=== PATIENT | male | born 1950 | race Caucasian/White ===

== ENCOUNTER 2018-01-05 15:27 | Emergency (ER) | payer BC ==
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
--- NOTE | 2018-01-08 09:21 | RADIOLOGY REPORT ---
EXAM: RIGHT FOOT HISTORY: RIGHT FOOT INJURY LAST NIGHT. ABSCESS. TECHNIQUE: Three views of the right foot were obtained. Comparison: 12/10/11. FINDINGS: There is soft tissue swelling and laceration along the medial aspect of the first metatarsal phalangeal joint. The underlying bones appear intact. There is no visible acute fracture or destructive process. The bones are diffusely osteopenic. There is no radiopaque foreign body. IMPRESSION: 1. LOCALIZED SOFT TISSUE SWELLING AND SKIN WOUND MEDIAL TO THE FIRST METATARSAL PHALANGEAL JOINT. THERE IS NO FOREIGN BODY. 2. NO ACUTE OSSEOUS ABNORMALITY IDENTIFIED. [facility]BER: [id number] [facility]
== END 2018-01-05 17:35 | disposition home or self-care (01) ==
LOC: ER 15:27
DX: L02.611 Cutaneous abscess of right foot (principal); Z87.891 Personal history of nicotine dependence
CPT/HCPCS: 99283

== ENCOUNTER 2018-01-16 10:05 | Emergency (ER) | payer BC ==
[2018-01-16] MEDS ORDERED: ONDANSETRON HCL IV 4 MG/2 ML VIAL IVP ONE (10:15)
[2018-01-16] MEDS ORDERED: 0.9 % SODIUM CHLORIDE 1,000 ML BAG IV ONE (10:15)
--- NOTE | 2018-01-16 10:19 | Emergency Department Record ---
History of Present Illness - General Chief Complaint: Abdominal Pain Stated Complaint: ABDOMINAL PAIN AND BLOATING Time Seen by Provider: 01/16/18 10:11 Source: Patient Mode of Arrival: Ambulatory Limitations: No limitations - History of Present Illness Initial Comments: 67 yo male presents with abdominal bloating and pain for 3 days. He denies past surgical history. No fevers. He is having dry heaves but little vomiting. He has decreased appetite and unable to eat or drink much at this point. He states his bowel movements have decreased as well. He is passing gas. No history of obstruction. He was treated with antibiotics for a foot infection currently. He was seen in the podiatry clinic. No back pain. PCP is in [place]. History of Hep CRan ARTEAGA Complaint: Abdominal pain -: Days(s) (3) Location: Diffuse Radiation: Other (diffuse) Migration to: Other (diffuse) Severity: Moderate Quality: Aching Consistency: Constant Improves With: Nothing Worsens With: Eating Context: Other Associated Symptoms: Anorexia - Related Data Home Medications Medication Instructions Recorded Confirmed Last Taken Amlodipine Besylate [Norvasc] 10 mg PO DAILY 01/16/18 01/16/18 01/16/18 Aspirin [Aspir-Low] 81 mg PO DAILY 01/16/18 01/16/18 01/16/18 Meloxicam [Mobic] 15 mg PO DAILY 01/16/18 01/16/18 01/16/18 Allergies Allergy/AdvReac Type Severity Reaction Status Date / Time sulfamethoxazole AdvReac Intermediate nausea Verified 01/16/18 10:20 [From Bactrim] trimethoprim [From Bactrim] AdvReac Intermediate nausea Verified 01/16/18 10:20 Review of Systems Constitutional: Denies: Chills, Fever, Malaise, Weakness Eyes: Denies: Eye discharge ENT: Denies: Congestion, Throat pain Respiratory: Denies: Cough Cardiovascular: Denies: Chest pain, Palpitations, Syncope Endocrine: Denies: Fatigue Gastrointestinal: Reports: As per HPI, Abdominal pain, Constipation, Nausea. Denies: Diarrhea, Hematemesis, Hematochezia, Melena, Vomiting Genitourinary: Denies: Dysuria, Frequency, Hematuria Musculoskeletal: Reports: As per HPI, Arthralgia. Denies: Back pain, Myalgia Skin: Denies: Bruising Neurological: Denies: Headache Psychiatric: Denies: Anxiety Hematological/Lymphatic: Denies: Blood Clots, Easy bleeding, Easy bruising, Swollen glands Past Medical History - SOCIAL HISTORY Smoking Status: Former smoker Drug Use: None - RESPIRATORY Hx Respiratory Disorders: Yes Hx COPD: Yes - CARDIOVASCULAR Hx Cardio Disorders: Yes Hx Hypertension: Yes - NEURO Hx Neuro Disorders: No - GI Hx GI Disorders: Yes Hx Liver Disease: Yes (Hep C) - Hx Genitourinary Disorders: No - ENDOCRINE Hx Endocrine Disorders: No - MUSCULOSKELETAL Hx Musculoskeletal Disorders: Yes Hx Arthritis: Yes (Chronic Pain) - PSYCH Hx Psych Problems: Yes Hx Anxiety: Yes Hx Depression: Yes (PTSD) - HEMATOLOGY/ONCOLOGY Hx Hematology/Oncology Disorders: No Family Medical History Hx HTN: Mother Physical Exam - General General Appearance: Alert, Oriented x3, Cooperative, No acute distress Limitations: No limitations - Head Head exam: Atraumatic, Normal inspection - Eye Eye exam: Normal appearance. negative: Conjunctival injection, Scleral icterus - ENT ENT exam: Normal exam, Mucous membranes moist, Normal orophraynx Ear exam: Normal external inspection Nasal Exam: Normal inspection Mouth exam: Normal external inspection - Neck Neck exam: Normal inspection, Full ROM. negative: Tenderness - Respiratory Respiratory exam: Normal lung sounds bilaterally. negative: Accessory muscle use, Decreased breath sounds, Respiratory distress, Rhonchi, Stridor, Wheezes - Cardiovascular Cardiovascular Exam: Regular rate, Normal rhythm, Normal heart sounds. negative : Irregular rhythm - GI/Abdominal GI/Abdominal exam: Soft, Tenderness (very soft, mildly diffusely tender, no focal tenderness). negative: Distended, Guarding, Rebound - exam: Deferred - Back Back exam: Reports: Full ROM. Denies: CVA tenderness (R), CVA tenderness (L), Tenderness - Neurological Neurological exam: Alert, Oriented X3 - Psychiatric Psychiatric exam: Normal affect, Normal mood Course - Reevaluation(s) Reevaluation #1: 01/16/18 10:36 The CBC was reviewed. No acute changes No infection on the UA, Protein and Ketones noted 01/16/18 10:48 The CMP was reviewed The K is 3.1 The AG is 19 The CR is 1.4 with GFR of 54 The AST is 114 The ALT is 80 The AlkPhos is 209 Bili is 1.2 The Lipase is 81 01/16/18 10:52 LFT on EMR are chronically mildly elevated, may be related to his Hep C. 01/16/18 13:[address] scan is consistent with cirrhosis with ascites, bowel wall thickening may be reactive due to the ascites vs enteritis 01/16/18 13:42 I TIGRE Blank at [facility] [place] The patient has been accepted for transfer for further work up for of the new onset ascites. Medical Decision Making - Lab Data Result diagrams: 01/16/18 10:15 01/16/18 10:15 Disposition Disposition: Transfer Clinical Impression: Abdominal pain Qualifiers: Abdominal location: unspecified location Qualified Code(s): R10.9 - Unspecified abdominal pain Cirrhosis Qualifiers: Hepatic cirrhosis type: unspecified hepatic cirrhosis Ascites presence: with ascites Qualified Code(s): K74.60 - Unspecified cirrhosis of liver Ascites Qualifiers: Ascites type: other type Qualified Code(s): R18.8 - Other ascites Disposition: Acute Care Hospital Transfer Transfer To: [facility] [place] Reason For Transfer: Ascites, new onset Accepting Physician: Abhay Time Discussed w/Accepting Physician: 13:43 Condition: (2) Stable Forms: Patient Portal Access Time of Disposition: 13:43 Quality - Quality Measures Quality Measures: N/A - Blood Pressure Screening Does Patient Have Any of the Following: Active Dx of HTN Blood Pressure Classification: Pre-Hypertensive BP Reading Systolic Measurement: 186 Diastolic Measurement: 88 Screening for High Blood Pressure: Patient Exclusion, Hx of HTN [G9744] Pre-Hypertensive Follow-up Interventions: Referral to alternative/primary care provider.
[2018-01-16 10:22] LABS: BASO % 0.4 % (0-6); EOS % 2.7 % (0-6); GRAN % 67.8 % (47-80); HEMATOCRIT 43.3 % (42.0-52.0); HEMOGLOBIN 14.8 gm/dl (14.0-18.0); LYMPH % 21.4 % (16-45); MEAN CELL VOLUME 93.1 fl (81-97); MEAN CORPUSCULAR HEMOGLOBIN 31.8 pg (27-33); MEAN CORPUSCULAR HGB CONC 34.2 g/dl (32-36); MEAN PLATELET VOLUME 9.7 fl (7.4-10.4); MONO % 7.7 % (0-9); PLATELET COUNT 328 K/uL (130-400); RED BLOOD COUNT 4.65 M/uL (4.40-5.70); WHITE BLOOD COUNT W/O DIFF 11.1 K/uL (4.2-12.2)
[2018-01-16 10:32] LABS: URINE APPEARANCE CLEAR; URINE BILIRUBIN NEGATIVE (NEGATIVE); URINE BLOOD SMALL (NEGATIVE); URINE COLOR YELLOW; URINE GLUCOSE (UA) NEGATIVE (NEGATIVE); URINE KETONE TRACE (NEGATIVE); URINE LEUKOCYTE ESTERASE NEGATIVE (NEGATIVE); URINE NITRITE NEGATIVE (NEGATIVE); URINE UROBILINOGEN 0.2 E.U./dL (0.20 - 1.00)
[2018-01-16 10:33] LABS: BILIRUBIN,TOTAL 1.2 mg/dL (0.2-1.0); CREATININE 1.4 mg/dL (0.7-1.2)
[2018-01-16 10:34] LABS: TOTAL PROTEIN 8.6 g/dL (6.6-8.7)
[2018-01-16 10:38] LABS: ALBUMIN 3.7 g/dL (4.0-5.0)
[2018-01-16 10:39] LABS: ALB/GLOB RATIO 0.8 (1.1-1.8)
[2018-01-16 10:39] LABS: URINE EPITHELIAL CELLS NONE SEEN (FEW); URINE MUCUS LIGHT; URINE RBC 0 - 2 (NONE SEEN); URINE WBC NONE SEEN (0-2/hpf)
[2018-01-16] MEDS ORDERED: SOD CHLOR 0.9% WITH KCL 40MEQ 40 MEQ/1,000 ML IV.SOLN IV ONE (10:50)
[2018-01-16] MEDS ORDERED: LORAZEPAM 0.5 MG TABLET PO ONE (13:58)
--- NOTE | 2018-01-19 14:11 | CT SCAN REPORT ---
EXAM: CT OF THE ABDOMEN AND PELVIS WITH CONTRAST HISTORY: RIGHT LOWER EXTREMITY WEAKNESS. CONSTIPATION FOR THREE DAYS. TECHNIQUE: Routine CT images of the abdomen and pelvis were obtained following intravenous administration of contrast, amount and type of contrast are in the medical record. Comparison: CTA of the chest 09/30/13. FINDINGS: There is a granulomatous calcification within the right lower lobe. There is evidence for hepatic cirrhosis. The portal vein continues to enhance with contrast. There is recanalization of the umbilical vein. The liver demonstrates a nodular serosal surface contour and is diminutive in size. No focal hepatic mass. There is prominent ascites throughout the abdomen and pelvis. There are multiple splenic granulomatous calcifications. A few splenic hypodensities are noted which may relate to cysts. The gallbladder, biliary tree, pancreas, and adrenals are unremarkable. There is right renal atrophy. Bilateral renal cysts. Small hiatal hernia. The bowel is normal in caliber. There is suggestion of colonic wall thickening which could be reactive in relation to prominent ascites. There also appears to be mild thickening of small bowel loops as well. The bladder is unremarkable. There is extensive atherosclerotic calcification throughout. There is aortic ectasia without aneurysmal dilatation. No abdominal or pelvic lymphadenopathy. The abdominal wall soft tissues are unremarkable. No acute osseous abnormality. IMPRESSION: 1. FINDINGS COMPATIBLE WITH HEPATIC CIRRHOSIS AND PORTAL HYPERTENSION. THERE IS RECANALIZATION OF THE UMBILICAL VEIN. 2. LARGE AMOUNT OF ASCITES THROUGHOUT THE ABDOMEN AND PELVIS. 3. PRESUMED REACTIVE WALL THICKENING INVOLVING THE SMALL AND LARGE BOWEL THOUGH ENTEROCOLITIS WOULD REMAIN POSSIBLE IN THE APPROPRIATE CLINICAL SETTING. 4. RIGHT RENAL ATROPHY. THERE IS NO EVIDENCE FOR EXCRETION OF CONTRAST INTO THE RIGHT RENAL COLLECTING SYSTEM ON DELAYED IMAGING. FINDINGS COULD BE ON ACCOUNT OF RENAL ARTERY STENOSIS. 5. OTHER CHRONIC FINDINGS ABOVE. [facility]: [id number] [facility]
== END 2018-01-16 16:10 | disposition short-term general hospital (02) ==
LOC: ER 10:05
DX: K74.60 Unspecified cirrhosis of liver (principal); R18.8 Other ascites; R10.9 Unspecified abdominal pain; J44.9 Chronic obstructive pulmonary disease, unspecified; I10 Essential (primary) hypertension; Z87.891 Personal history of nicotine dependence
CPT/HCPCS: 99285 ×2; 96365; 96366; 96375; 83690; 85025; 80053; 81001; 74177; Q9967; J2405; J7030

== ENCOUNTER 2018-01-25 10:01 | Emergency (ER) | payer BC ==
--- NOTE | 2018-01-25 10:17 | Emergency Department Record ---
History of Present Illness - General Chief Complaint: Abdominal Pain Stated Complaint: SWOLLEN ABD Time Seen by Provider: 01/25/18 10:08 Source: Patient Mode of Arrival: Ambulatory Limitations: No limitations - History of Present Illness Initial Comments: The patient is here for abdominal pain and abdominal swelling over the last few days. The patient has a hx of Cirrhosis and Hep C and was recently admitted to [facility] where he had 5 liters of fluid removed. He was discharged 6 days ago and now states the same thing is happening again. There has been no hx of fever, or chills, but he has had mild nausea and vomiting. MD Complaint: Abdominal pain Onset/Timin -: Days(s) Radiation: L flank, R flank, LLQ, RLQ Severity: Severe Severity scale (1-10): 10 Quality: Aching Consistency: Constant Improves With: Nothing Worsens With: Nothing Associated Symptoms: Nausea, Vomiting - Related Data Home Medications Medication Instructions Recorded Confirmed Last Taken Spironolactone 50 mg PO DAILY 01/25/18 01/25/18 01/25/18 Tramadol HCl 50 mg PO DAILY 01/25/18 01/25/18 01/25/18 Allergies Allergy/AdvReac Type Severity Reaction Status Date / Time sulfamethoxazole AdvReac Intermediate nausea Verified 01/25/18 10:08 [From Bactrim] trimethoprim [From Bactrim] AdvReac Intermediate nausea Verified 01/25/18 10:08 Travel Screening - Travel/Exposure Within Last 30 Days Have you traveled within the last 30 days?: No Review of Systems Constitutional: Denies: Chills, Fever Eyes: Denies: Eye discharge ENT: Denies: Congestion Respiratory: Denies: Cough, Dyspnea Cardiovascular: Denies: Arrhythmia Endocrine: Reports: Fatigue Gastrointestinal: Reports: Nausea. Denies: Diarrhea Genitourinary: Denies: Dysuria Musculoskeletal: Denies: Arthralgia Skin: Denies: Bruising Past Medical History - SOCIAL HISTORY Smoking Status: Former smoker Alcohol Use: None Drug Use: None - RESPIRATORY Hx Respiratory Disorders: Yes Hx COPD: Yes - CARDIOVASCULAR Hx Cardio Disorders: Yes Hx Hypertension: Yes - NEURO Hx Neuro Disorders: No - GI Hx GI Disorders: Yes Hx Liver Disease: Yes (Hep C) - Hx Genitourinary Disorders: No - ENDOCRINE Hx Endocrine Disorders: No - MUSCULOSKELETAL Hx Musculoskeletal Disorders: Yes Hx Arthritis: Yes (Chronic Pain) - PSYCH Hx Psych Problems: Yes Hx Anxiety: Yes Hx Depression: Yes (PTSD) - HEMATOLOGY/ONCOLOGY Hx Hematology/Oncology Disorders: No Family Medical History Any Significant Family History?: Yes Hx HTN: Mother Physical Exam - General General Appearance: Alert, Oriented x3, Cooperative, No acute distress - Head Head exam: Atraumatic, Normocephalic, Normal inspection - Eye Eye exam: Normal appearance, PERRL - ENT Throat exam: Normal inspection. negative: Tonsillar erythema, Tonsillar exudate - Neck Neck exam: Normal inspection, Full ROM. negative: Tenderness - Respiratory Respiratory exam: Normal lung sounds bilaterally. negative: Respiratory distress - Cardiovascular Cardiovascular Exam: Regular rate, Normal rhythm, Normal heart sounds - GI/Abdominal GI/Abdominal exam: Soft, Distended, Tenderness (There is mild diffuse tenderness in all 4 quads.). negative: Rebound, Rigid - Extremities Extremities exam: Normal inspection, Full ROM, Normal capillary refill. negative: Tenderness - Neurological Neurological exam: Alert. negative: Motor sensory deficit Course Vital Signs 01/25/18 10:10 Temperature 97.5 F L Pulse Rate 85 Respiratory 20 Rate Blood Pressure 162/92 Pulse Ox 98 - Reevaluation(s) Reevaluation #1: I did discuss the case with Dr. Monreal at [facility] from [facility] service and he does accept the patient as a direct admit to the hospital. 01/25/18 11:40 Medical Decision Making - Data Complexity MDM Data: Labs Ordered and/or Reviewed, X-Ray Ordered and/or Reviewed - Lab Data Result diagrams: 01/25/18 10:27 01/25/18 10:27 - Radiology Data Radiology results: Report reviewed (Abd CT: Cirrhosis and a large volume of ascites.) Disposition Disposition: Transfer Clinical Impression: Ascites Qualifiers: Ascites type: other type Qualified Code(s): R18.8 - Other ascites Disposition: Acute Care Hospital Transfer Transfer To: [facility] Reason For Transfer: GI Accepting Physician: Rah Time Discussed w/Accepting Physician: 11:41 Condition: (2) Stable Forms: Patient Portal Access Time of Disposition: 11:41 Quality - Quality Measures Quality Measures: N/A - Blood Pressure Screening View Details: Yes Does Patient Have Any of the Following: No Blood Pressure Classification: Hypertensive Reading Systolic Measurement: 162 Diastolic Measurement: 92 Screening for High Blood Pressure: < First Hypertensive BP, F/U Documented > [ G8950] First Hypertensive Follow-up Interventions: Referral to alternative/primary care provider.
[2018-01-25] MEDS ORDERED: ONDANSETRON HCL IV 4 MG/2 ML VIAL IVP ONE (10:18)
[2018-01-25 10:37] LABS: BASO % 0.3 % (0-6); EOS % 0.8 % (0-6); GRAN % 76.1 % (47-80); HEMATOCRIT 41.8 % (42.0-52.0); HEMOGLOBIN 14.3 gm/dl (14.0-18.0); LYMPH % 13.8 % (16-45); MEAN CELL VOLUME 93.5 fl (81-97); MEAN CORPUSCULAR HGB CONC 34.2 g/dl (32-36); MEAN PLATELET VOLUME 10.3 fl (7.4-10.4); PLATELET COUNT 290 K/uL (130-400); RED BLOOD COUNT 4.47 M/uL (4.40-5.70); URINE APPEARANCE SL CLOUDY; URINE BILIRUBIN NEGATIVE (NEGATIVE); URINE BLOOD SMALL (NEGATIVE); URINE COLOR YELLOW; URINE GLUCOSE (UA) NEGATIVE (NEGATIVE); URINE KETONE NEGATIVE (NEGATIVE); URINE LEUKOCYTE ESTERASE TRACE (NEGATIVE); URINE NITRITE NEGATIVE (NEGATIVE); URINE UROBILINOGEN 0.2 E.U./dL (0.20 - 1.00); WHITE BLOOD COUNT W/O DIFF 11.7 K/uL (4.2-12.2)
[2018-01-25 10:49] LABS: URINE BACTERIA FEW; URINE EPITHELIAL CELLS 0 - 2 (FEW); URINE HYALINE CAST 0 - 2 /lpf; URINE RBC 0 - 2 (NONE SEEN)
[2018-01-25 10:50] LABS: BILIRUBIN,TOTAL 1.2 mg/dL (0.2-1.0); CREATININE 1.5 mg/dL (0.7-1.2); INR 1.1; PARTIAL THROMBOPLASTIN TIME 25.6 SECONDS (24.5-39.1); PROTHROMBIN TIME (PATIENT) 10.6 SECONDS (9.5-12.1); TOTAL PROTEIN 8.7 g/dL (6.6-8.7)
[2018-01-25 10:55] LABS: ALBUMIN 3.6 g/dL (4.0-5.0); BILIRUBIN,DIRECT 0.3 mg/dL (0-0.3)
--- NOTE | 2018-01-26 13:33 | CT SCAN REPORT ---
EXAM: CT OF THE ABDOMEN AND PELVIS WITHOUT CONTRAST HISTORY: ABDOMINAL PAIN AND DISTENTION. TECHNIQUE: Sequential axial images were obtained from the diaphragms through the ischiorectal fossa without intravenous contrast administration. Comparison: 01/16/18. FINDINGS: The visualized lung bases appear normal. There is a cirrhotic liver present. There is a large volume of abdominal and pelvic ascites. The gallbladder appears unremarkable. The pancreas and spleen appear normal. There is splenic granulomatous disease. The adrenal glands and kidneys are normal. The small and large bowel appears normal. No gross abnormalities within the urinary bladder. There is osteopenia. IMPRESSION: 1. LARGE VOLUME OF ABDOMINAL AND PELVIC ASCITES. 2. FINDINGS SUGGESTIVE OF CIRRHOSIS. [facility]: [id number] [facility]
== END 2018-01-25 14:00 | disposition short-term general hospital (02) ==
LOC: ER 10:01
DX: R18.8 Other ascites (principal); R11.2 Nausea with vomiting, unspecified; R10.84 Generalized abdominal pain; I10 Essential (primary) hypertension; Z87.891 Personal history of nicotine dependence; Z86.19 Personal history of other infectious and parasitic diseases
CPT/HCPCS: 74176; 80048; 80076; 81001; 83690; 85025; 85610; 85730; 96374; 99285; J2405